=== PATIENT | female | born 1995 | race Caucasian/White ===

== ENCOUNTER 2017-01-15 11:22 | Emergency (ER) | payer OTHER ==
[2017-01-15 11:39] VITALS: TEMP 98.7; BMI 18.6
[2017-01-15] MEDS ORDERED: SODIUM CHLORIDE 1,000 ML IV STA (12:12)
[2017-01-15] MEDS ORDERED: MAG HYDROX/AL HYDROX/SIMETH 30 ML UNIT-DOSE CUP PO ONE (12:12)
[2017-01-15] MEDS ORDERED: PANTOPRAZOLE SODIUM 40 MG in SODIUM CHLORIDE 100 ML IVPB ONE (12:12)
[2017-01-15] MEDS ORDERED: SUCRALFATE 1 GM TABLET (FP) PO ONE (12:12)
[2017-01-15] MEDS ORDERED: FAMOTIDINE 20 MG/50 ML IVPB 50 ML IVPB ONE ×2 (12:12→12:23)
[2017-01-15 12:17] LABS: BASOPHIL 0.2 % (0-2.0); EOSINOPHIL 0.8 % (0-4.5); MCH 28.6 pg (25.7-33.7); MCHC 33.5 g/dl (32.0-36.0); MEAN CELL VOLUME 85.4 fl (80-96); MEAN PLT VOLUME 8.3 fl (7.5-11.1); NEUTROPHILS 80.4 % (42.8-82.8); PLATELET COUNT 229 K/MM3 (134-434); WHITE BLOOD COUNT 9.2 K/mm3 (4.0-10.0)
--- NOTE | 2017-01-15 12:17 | PDOC ---
History of Present Illness - General History Source: Patient Exam Limitations: No Limitations - History of Present Illness Initial Comments: 01/15/17 12:27 21 y F with a significant past medical history of gastritis and anxiety who presents to the ED with epigastric pain for 2 days. Patient reports severe pain in the epigastric area since last night. She reports multiple episodes of nausea and vomiting. She took tums and xanax with no relief. She had steak and rice yesterday. She has hx of intermittent gastritis flare ups. She has not been scoped in the past. No fever or chills. No diarrhea, constipation, hematochezia or hematuria. <Jamilah Hansen - Last Filed: 01/15/17 12:30> - General History Source: Patient Exam Limitations: No Limitations <Nghia Aguila - Last Filed: 01/15/17 16:25> - General Chief Complaint: Pain Stated Complaint: ABD PAIN Time Seen by Provider: 01/15/17 11:49 Past History <Jamilah Hansen - Last Filed: 01/15/17 12:30> - Past Medical History Psychiatric Problems: Yes (ANXIETY.) - Suicide/Smoking/Psychosocial Hx Smoking Status: No Smoking History: Never smoked Have you smoked in the past 12 months: No Number of Cigarettes Smoked Daily: 0 Information on smoking cessation initiated: No Hx Alcohol Use: No Drug/Substance Use Hx: No Substance Use Type: None <Nghia Aguila - Last Filed: 01/15/17 16:25> - Past Medical History Allergies/Adverse Reactions: Allergies Allergy/AdvReac Type Severity Reaction Status Date / Time acetaminophen Allergy Verified 01/15/17 11:35 [From Theraflu Sinus and Cold] pheniramine Allergy Verified 01/15/17 11:35 [From Theraflu Sinus and Cold] phenylephrine HCl Allergy Verified 01/15/17 11:35 [From Theraflu Sinus and Cold] Home Medications: Ambulatory Orders Pantoprazole Sodium [Protonix] 40 mg PO DAILY #30 tablet. 01/15/17 Ranitidine HCl [Zantac] 150 mg PO BID PRN #20 tablet 01/15/17 Review of Systems - Review of Systems Able to Perform ROS?: Yes Comments:: 01/15/17 12:28 GENERAL/CONSTITUTIONAL: No fever or chills. No weakness. HEAD, EYES, EARS, NOSE AND THROAT: No change in vision. No ear pain or discharge. No sore throat. CARDIOVASCULAR: No chest pain or shortness of breath. RESPIRATORY: No cough, wheezing, or hemoptysis. GASTROINTESTINAL: +nausea, vomiting, abdominal pain. No diarrhea or constipation. GENITOURINARY: No dysuria, frequency, or change in urination. MUSCULOSKELETAL: No joint or muscle swelling or pain. No neck or back pain. SKIN: No rash NEUROLOGIC: No headache, vertigo, loss of consciousness, or change in strength/ sensation. ENDOCRINE: No increased thirst. No abnormal weight change. HEMATOLOGIC/LYMPHATIC: No anemia, easy bleeding, or history of blood clots. ALLERGIC/IMMUNOLOGIC: No hives or skin allergy. <Jamilah Hansen - Last Filed: 01/15/17 12:30> *Physical Exam - Vital Signs Last Vital Signs Temp Pulse Resp BP Pulse Ox 98.7 F 123 H 18 93/52 100 01/15/17 11:36 01/15/17 11:36 01/15/17 11:36 01/15/17 11:36 01/15/17 11:36 - Physical Exam Comments: 01/15/17 12:28 GENERAL: Awake, alert, and fully oriented, in no acute distress HEAD: No signs of trauma EYES: PERRLA, EOMI, sclera anicteric, conjunctiva clear ENT: +Dry mucous membranes. Auricles normal inspection, hearing grossly normal, nares patent, oropharynx clear without exudates. NECK: Normal ROM, supple, no lymphadenopathy, JVD, or masses LUNGS: Breath sounds equal, clear to auscultation bilaterally. No wheezes, and no crackles HEART: +Tachycardia, normal S1 and S2, no murmurs, rubs or gallops ABDOMEN: +Epigastric tenderness. Soft, normoactive bowel sounds. No guarding, no rebound. No masses EXTREMITIES: Normal range of motion, no edema. No clubbing or cyanosis. No cords, erythema, or tenderness NEUROLOGICAL: Cranial nerves II through XII grossly intact. Normal speech, normal gait SKIN: Warm, Dry, normal turgor, no rashes or lesions noted. <Jamilah Hansen - Last Filed: 01/15/17 12:30> - Vital Signs Last Vital Signs Temp Pulse Resp BP Pulse Ox 98.7 F 123 H 18 93/52 100 01/15/17 11:36 01/15/17 11:36 01/15/17 11:36 01/15/17 11:36 01/15/17 11:36 <Nghia Aguila - Last Filed: 01/15/17 16:25> ED Treatment Course - LABORATORY CBC & Chemistry Diagram: 01/15/17 12:10 01/15/17 12:10 - ADDITIONAL ORDERS Additional order review: 01/15/17 12:10 RBC 5.00 MCV 85.4 MCHC 33.5 RDW 13.0 MPV 8.3 Neutrophils % 80.4 D Lymphocytes % 10.1 D Monocytes % 8.5 Eosinophils % 0.8 Basophils % 0.2 <Jamilah Hansen - Last Filed: 01/15/17 12:30> - LABORATORY CBC & Chemistry Diagram: 01/15/17 12:10 01/15/17 12:10 <Nghia Aguila - Last Filed: 01/15/17 16:25> Medical Decision Making - Medical Decision Making 01/15/17 12:24 A portion of this note was documented by scribe services under my direction. I have reviewed the details of the note, within reason, and agree with the documentation with the following case summary and management plan written by me. Patient treated in the ED. Nursing notes are reviewed and incorporated into the medical decision-making. Vital signs reviewed. Peripheral IV access obtained by the nurse, laboratory studies are drawn and sent, reviewed and interpreted by myself. Vital Signs Temp Pulse Resp BP Pulse Ox 98.7 F 123 H 18 93/52 100 01/15/17 11:36 01/15/17 11:36 01/15/17 11:36 01/15/17 11:36 01/15/17 11:36 I suspect the patient may likely have gastritis versus peptic ulcer disease. The patient did have a syncopal episode here in the ED that appears secondary to likely vasovagal. EKG demonstrates sinus tachycardia with no ST elevation or depression. No evidence of hypertrophic cardiomyopathy, Iwzru-[id number]-Djuoy, Brugada. We'll obtain blood work including serum pertinency test, urine analysis , right upper quadrant ultrasound, labs. Treat symptoms and reassess. 01/15/17 16:21 CBC, BMP 01/15/17 12:10 01/15/17 12:10 CMP Sodium 137 mmol/L (136-145) 01/15/17 12:10 Potassium 4.4 mmol/L (3.5-5.1) 01/15/17 12:10 Chloride 102 mmol/L (98-107) 01/15/17 12:10 Carbon Dioxide 25 mmol/L (21-32) 01/15/17 12:10 Anion Gap 10 (8-16) 01/15/17 12:10 BUN 13 mg/dL (7-18) 01/15/17 12:10 Creatinine 0.6 mg/dL (0.55-1.02) 01/15/17 12:10 Creat Clearance w eGFR > 60 (>60) 01/15/17 12:10 Random Glucose 89 mg/dL (74-106) 01/15/17 12:10 Calcium 9.4 mg/dL (8.5-10.1) 01/15/17 12:10 Total Bilirubin 1.5 mg/dL (0.2-1.0) H 01/15/17 12:10 AST 18 U/L (15-37) 01/15/17 12:10 ALT 17 U/L (12-78) 01/15/17 12:10 Alkaline Phosphatase 67 U/L (45-117) 01/15/17 12:10 Creatine Kinase 87 IU/L (26-192) 01/15/17 12:19 Troponin I < 0.02 ng/ml (0.00-0.05) 01/15/17 12:19 Total Protein 7.2 g/dl (6.4-8.2) 01/15/17 12:10 Albumin 3.6 g/dl (3.4-5.0) 01/15/17 12:10 Lipase 124 U/L (73-393) 01/15/17 12:10 Serum , Qual Negative 01/15/17 12:19 Urine Test Results Urine Color Ltyellow 01/15/17 12:11 Urine Appearance Clear 01/15/17 12:11 Urine pH 6.0 (5.0-8.0) 01/15/17 12:11 Urine Protein Negative (NEGATIVE) 01/15/17 12:11 Urine Glucose (UA) Negative (NEGATIVE) 01/15/17 12:11 Urine Ketones Trace (NEGATIVE) H 01/15/17 12:11 Urine Blood Negative (NEGATIVE) 01/15/17 12:11 Urine Nitrite Negative (NEGATIVE) 01/15/17 12:11 Urine Bilirubin Negative (NEGATIVE) 01/15/17 12:11 Labs reviewed. Ultrasound reviewed. No acute findings. Likely PUD vs. gastritis vs. stomach ulcer Will discharge on protonix and zantac Follow up with GI for endoscopy I discussed the physical exam findings, ancillary test results and final diagnoses with the patient. I answered all of the patient's questions. The patient was satisfied with the care received and felt comfortable with the discharge plan and treatment plan. The patient will call their primary care physician within 24 hours to arrange follow-up and will return to the Emergency Department with any new, persistant or worsening symptoms. <Nghia Aguila - Last Filed: 01/15/17 16:25> *DC/Admit/Observation/Transfer - Attestations Scribe Attestion: 01/15/17 12:30 Documentation prepared by RANJIT Salgado, acting as biomedical engineering professor for Nghia Aguila MD. <Jamilah Hansen - Last Filed: 01/15/17 12:30> - Discharge Dispostion Admit: No <Nghia Aguila - Last Filed: 01/15/17 16:25> Diagnosis at time of Disposition: Gastritis Qualifiers: Gastritis type: unspecified gastritis Chronicity: chronic Gastritis bleeding: without bleeding Qualified Code(s): K29.50 - Unspecified chronic gastritis without bleeding; K29.50 - Unspecified chronic gastritis without bleeding - Discharge Dispostion Disposition: HOME Condition at time of disposition: Improved - Prescriptions Prescriptions: Pantoprazole Sodium [Protonix] 40 mg PO DAILY #30 tablet. Ranitidine HCl [Zantac] 150 mg PO BID PRN #20 tablet PRN Reason: GERD - Referrals Referrals: Elton Campos [Primary Care Provider] - Ralph Sanchez MD [Staff Physician] - - Patient Instructions Printed Discharge Instructions: DI for Gastric Ulcer, DI for Gastritis Additional Instructions: Take 40 mg protonix daily. For additional relief, take a tablet of zantac every 12 hours as needed. Follow up with a GI physician. You may need an endoscopy.
[2017-01-15] MEDS ORDERED: PANTOPRAZOLE SODIUM 100 ML IVPB ONE (12:22)
[2017-01-15] MEDS ORDERED: SUCRALFATE 1 GM TABLET (FP) ONE (12:22)
[2017-01-15] MEDS ORDERED: MAG HYDROX/AL HYDROX/SIMETH 30 ML UNIT-DOSE CUP ONE (12:22)
[2017-01-15 12:44] LABS: ALBUMIN 3.6 g/dl (3.4-5.0); ANION GAP 10 (8-16); BILIRUBIN,TOTAL 1.5 mg/dL (0.2-1.0); CALCIUM 9.4 mg/dL (8.5-10.1); CO2 25 mmol/L (21-32); CREATININE 0.6 mg/dL (0.55-1.02); GLUCOSE,RANDOM 89 mg/dL (74-106); SGPT/ALT 17 U/L (12-78); TOT PROT 7.2 g/dl (6.4-8.2)
[2017-01-15 12:45] LABS: ALK PHOS 67 U/L (45-117)
[2017-01-15 12:54] LABS: TROPONIN I < 0.02 ng/ml (0.00-0.05)
[2017-01-15 13:02] LABS: SGOT/AST 18 U/L (15-37)
[2017-01-15 13:03] LABS: CPK 87 IU/L (26-192)
[2017-01-15 15:11] LABS: URINE APPEARANCE CLEAR; URINE BILIRUBIN NEGATIVE (NEGATIVE); URINE BLOOD NEGATIVE (NEGATIVE); URINE COLOR LTYELLOW; URINE GLUCOSE (UA) NEGATIVE (NEGATIVE); URINE KETONE TRACE (NEGATIVE); URINE NITRITE NEGATIVE (NEGATIVE); URINE PROTEIN NEGATIVE (NEGATIVE); URINE UROBILINOGEN NEGATIVE mg/dL (0.2-1.0)
[2017-01-15 16:56] VITALS: BP 101/82; PULSE 99
[2017-01-15 18:48] LABS: URINE LEUK ESTERASE NEGATIVE (NEGATIVE)
--- NOTE | 2017-01-16 11:06 | EKG ---
Test Reason : Blood Pressure : / mmHG Vent. Rate : 112 BPM Atrial Rate : 112 BPM P-R Int : 116 ms QRS Dur : 074 ms QT Int : 312 ms P-R-T Axes : 055 090 057 degrees QTc Int : 425 ms SINUS TACHYCARDIA RIGHTWARD AXIS NO PREVIOUS ECGS AVAILABLE Confirmed by KWADWO MUIR MD ([id number]) on 01/16/2017 11:05:33 AM Referred By: Confirmed By:KWADWO MUIR MD
== END 2017-01-15 16:58 | disposition home or self-care (01) ==
LOC: JER 11:22
PROC: 3E033GC Introduction of Other Therapeutic Substance into Peripheral Vein, Percutaneous Approach (ICD-10-PCS; principal; 2017-01-15)
PROC: 3E033GC Introduction of Other Therapeutic Substance into Peripheral Vein, Percutaneous Approach (ICD-10-PCS; 2017-01-15)
DX: K29.50 Unspecified chronic gastritis without bleeding (principal)
CPT/HCPCS: 36415; 76705-TC; 80053; 81003; 82550; 83690; 84484; 84703; 85025; 87086; 93005; 93010; 96365; 96368; 99283-25

== ENCOUNTER 2017-12-07 03:47 | Emergency (ER) | payer OTHER ==
[2017-12-07] MEDS ORDERED: SODIUM CHLORIDE 1,000 ML IV STA (05:46)
[2017-12-07] MEDS ORDERED: FAMOTIDINE 20 MG/50 ML IVPB 20 MG/50 ML MG IVPB ONE ×2 (05:46→05:53)
[2017-12-07] MEDS ORDERED: MAG HYDROX/AL HYDROX/SIMETH 30 ML UNIT-DOSE CUP PO ONE (05:47)
[2017-12-07 05:50] VITALS: TEMP 97.5; BMI 18.4
[2017-12-07] MEDS ORDERED: MAG HYDROX/AL HYDROX/SIMETH 30 ML UNIT-DOSE CUP ONE (05:53)
--- NOTE | 2017-12-07 06:19 | PDOC ---
History of Present Illness - General History Source: Patient Exam Limitations: No Limitations - History of Present Illness Initial Comments: 12/07/17 06:19 Osmar 22 YOF with a significant PMHx of gastritis and anxiety who presents to the ED with epigastric pain for 3 days. Patient reports severe pain in the epigastric area after eating chipotle one hour prior to her arrival to the ER. She also reports one episode of non bilious, non bloody vomit prior to arrival. Patient states she has a history of intermittent gastritis flare ups. Patient has not had an endoscopy in the past. The patient denies chest pain, shortness of breath, headache, and dizziness. Denies fever, chills, nausea, diarrhea, and constipation. Denies dysuria, frequency, urgency, and hematuria. Allergies: pheniramine, phenylephrine HCl Past surgical history: None reported. Social history: No reported alcohol, drug, or cigarette use. PCP: Dr. Hayden <Kiley Hughes - Last Filed: 12/07/17 06:19> - General History Source: Patient Exam Limitations: No Limitations <Jeanie Mari - Last Filed: 12/07/17 06:53> - General Chief Complaint: Pain Stated Complaint: ABD PAIN Time Seen by Provider: 12/07/17 05:46 Past History <Kiley Hughes - Last Filed: 12/07/17 06:19> - Past Medical History COPD: No Psychiatric Problems: Yes (ANXIETY.) - Suicide/Smoking/Psychosocial Hx Smoking Status: No Smoking History: Never smoked Have you smoked in the past 12 months: No Number of Cigarettes Smoked Daily: 0 Hx Alcohol Use: No Drug/Substance Use Hx: No Substance Use Type: None <Jeanie Mari - Last Filed: 12/07/17 06:53> - Past Medical History Allergies/Adverse Reactions: Allergies Allergy/AdvReac Type Severity Reaction Status Date / Time pheniramine Allergy Verified 12/07/17 05:42 [From Theraflu Sinus and Cold] phenylephrine HCl Allergy Verified 12/07/17 05:42 [From Theraflu Sinus and Cold] Home Medications: Ambulatory Orders NK [No Known Home Medication] 12/07/17 Review of Systems - Review of Systems Comments:: 12/07/17 06:20 ROS General Medical GENERAL/CONSTITUTIONAL: No fever or chills. No weakness. no sweats. HEAD, EYES, EARS, NOSE AND THROAT: No change in vision or hearing. No ear pain or discharge. No sore throat or mouth pain. No difficulty swallowing.. No congestion. CARDIOVASCULAR: No chest pain or palpitations, syncope or edema. RESPIRATORY: No SOB, cough, wheezing, or hemoptysis. GASTROINTESTINAL (+) Epigastric pain. (+) Vomited. (+) Gas pain. No nausea. No diarrhea or constipation. No bloody stools. GENITOURINARY: No hematuria, dysuria, frequency, urgency or other changes. MUSCULOSKELETAL: No joint or muscle swelling or pain. No neck or back pain. SKIN: No rash or changes in skin color or lesions. NEUROLOGIC: No headache, vertigo, loss of consciousness, or change in strength/ sensation. No gait instability. HEMATOLOGIC/LYMPHATIC: No anemia, easy bruising/bleeding, or history of blood clots. ALLERGIC/IMMUNOLOGIC: No allergies All other systems reviewed and negative, or as documented in HPI. <Kiley Hughes - Last Filed: 12/07/17 06:19> *Physical Exam - Vital Signs Last Vital Signs Temp Pulse Resp BP Pulse Ox 97.5 F L 75 18 110/73 12/07/17 05:47 12/07/17 05:47 12/07/17 05:47 12/07/17 05:47 - Physical Exam Comments: 12/07/17 06:20 General: Well appearing, awake and alert, NAD. HEENT: NCAT, PERRL, EOMI, clear conjunctiva, anicteric, moist mucus membranes, clear oropharynx, no oral lesions.. Neck: neck supple, FROM Resp: CTAB, normal and even respirations, no respiratory distress CVS: RRR, 2+ peripheral pulses throughout, no peripheral edema Abdomen: soft, nondistended, +epigastric TTP, no [place], no peritoneal signs. No flank tenderness MSK: no edema, ESTRELLA x4, ROM intact. No clubbing or cyanosis. normal bulk and tone. Neuro: alert, oriented appropriately Skin: warm and well perfused, cap refill <2 sec, normal color General Appearance: Yes: Nourished <iKley Hughes - Last Filed: 12/07/17 06:19> - Vital Signs Last Vital Signs Temp Pulse Resp BP Pulse Ox 97.5 F L 75 18 110/73 12/07/17 05:47 12/07/17 05:47 12/07/17 05:47 12/07/17 05:47 <Jeanie Mari - Last Filed: 12/07/17 06:53> ED Treatment Course - LABORATORY CBC & Chemistry Diagram: 12/07/17 06:07 12/07/17 06:07 - Medications Given in the ED: ED Medications Discontinued Medications Generic Name Dose Route Start Last Admin Trade Name Freq PRN Reason Stop Dose Admin Al Hydroxide/Mg Hydroxide 30 ml 12/07/17 05:47 12/07/17 06:07 Mylanta Oral Suspension - PO 12/07/17 05:48 30 ml ONCE ONE Administration Famotidine/Sodium Chloride 20 mg in 50 mls @ 100 mls/hr 12/07/17 05:46 06:07 Pepcid 20 Mg Premixed Ivpb - IVPB 12/07/17 06:15 100 mls/hr ONCE ONE Administration <Kiley Hughes - Last Filed: 12/07/17 06:19> - LABORATORY CBC & Chemistry Diagram: 12/07/17 06:07 12/07/17 06:07 - Medications Given in the ED: ED Medications Discontinued Medications Generic Name Dose Route Start Last Admin Trade Name Freq PRN Reason Stop Dose Admin Al Hydroxide/Mg Hydroxide 30 ml 12/07/17 05:47 12/07/17 06:07 Mylanta Oral Suspension - PO 12/07/17 05:48 30 ml ONCE ONE Administration Famotidine/Sodium Chloride 20 mg in 50 mls @ 100 mls/hr 12/07/17 05:46 06:07 Pepcid 20 Mg Premixed Ivpb - IVPB 12/07/17 06:15 100 mls/hr ONCE ONE Administration <Jeanie Mari - Last Filed: 12/07/17 06:53> Medical Decision Making - Medical Decision Making 12/07/17 06:19 A portion of this note was documented by scribe services under my direction. I have reviewed the details of the note, within reason, and agree with the documentation with the following case summary and management plan written by me. MDM: Osmar 22 y F with a significant past medical history of gastritis and anxiety presenting with epigastric pain x 3 days, +1 episode of NBNB vomiting; no diarrhea, fevers or chills. LMP 2 weeks ago. no urinary sx. +food precipitant (chipotle, fatty and greasy foods) Seen previously in the ED for similar sx, last abdomen US in 2017 which was normal. did not get endoscopy. DDx abdominal pain: GERD, PUD, esophageal spasm, pancreatitis, hepatitis, constipation, colitis, biliary colic, doubt appy or diverticulitis or pelvic pathology/UTI. sx most likely GERD vs gastritis - told to avoid triggers such as chipotle. Vitals wnl. Basic labs, lytes, LFTs and lipase wnl. Neg preg given LMP 2 weeks ago Given GI cocktail, IVF, antiemetics, sx likely from GERD/food intake (high fat and carbs) as trigger for her recurrent epigastric pain. Discharge: Pt to be discharged in stable condition. Patient and family made aware of impression and plan, return precautions discussed (including but not limited to worsening pain or symptoms), fevers, or signs of infection, chest pain, respiratory distress, inability to tolerate oral intake, dehydration, syncope, or neurologic changes). Follow up with PMD aand GI specialist Dr Quintero , as recommended, follow up information provided, take medications as instructed for duration of time. continue with supportive care, avoid triggers and precipitants. All questions answered to patient's satisfaction and expressed understanding and comfort with this. 12/07/17 06:22 12/07/17 06:53 <Jeanie Mari - Last Filed: 12/07/17 06:53> *DC/Admit/Observation/Transfer - Attestations Scribe Attestion: 12/07/17 06:22 Documentation prepared by Kiley Hughes, acting as medical manager for Jeanie Mari MD. <Kiley Hughes - Last Filed: 12/07/17 06:19> - Discharge Dispostion Decision to Admit order: No <Jeanie Mari - Last Filed: 12/07/17 06:53> Diagnosis at time of Disposition: Abdominal pain, epigastric - Discharge Dispostion Disposition: HOME Condition at time of disposition: Improved - Referrals Referrals: Brian Hayden MD [Primary Care Provider] - Ned Quintero MD [Staff Physician] - - Patient Instructions Printed Discharge Instructions: DI for Abdominal Pain-Adult, Gastroesophageal Reflux Disease (Alternative Therapy), GERD Diet, DI for Gastroesophageal Reflux Disease (GERD) Additional Instructions: you most likely have reflux and gastritis symptoms from intake of fatty foods avoid spicy or fatty/greasy foods, avoid triggers take pepcid daily and maalox or mylanta every 6 hours with food for heart burn and prevention of symptoms. 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 referrals provided. your blood work was normal. Print Language: SWISS - Post Discharge Activity
[2017-12-07 06:23] LABS: BASO % 0.9 % (0-2.0); EOS % 2.9 % (0-4.5); HEMATOCRIT 34.9 % (32.4-45.2); HEMOGLOBIN 11.8 GM/dL (10.7-15.3); LYMPH % 39.4 % (8-40); MCH 28.6 pg (25.7-33.7); MCHC 33.8 g/dl (32.0-36.0); MEAN CELL VOLUME 84.6 fl (80-96); MEAN PLT VOLUME 8.2 fl (7.5-11.1); MONO % 9.8 % (3.8-10.2); PLATELET COUNT 266 K/MM3 (134-434); RBC 4.13 M/mm3 (3.60-5.2); RDW 13.5 % (11.6-15.6)
[2017-12-07 06:47] LABS: ALBUMIN 3.1 g/dl (3.4-5.0); ALK PHOS 52 U/L (45-117); ANION GAP 7 MMOL/L (8-16); BILIRUBIN,TOTAL 0.8 mg/dL (0.2-1.0); BLOOD UREA NITROGEN 17 mg/dL (7-18); CALCIUM 8.5 mg/dL (8.5-10.1); CHLORIDE 105 mmol/L (98-107); CO2 28 mmol/L (21-32); CREATININE 0.7 mg/dL (0.55-1.02); GLUCOSE,RANDOM 87 mg/dL (74-106); LIPASE 126 U/L (73-393); POTASSIUM 4.1 mmol/L (3.5-5.1); SGOT/AST 14 U/L (15-37); SGPT/ALT 15 U/L (12-78); SODIUM 140 mmol/L (136-145); TOT PROT 6.4 g/dl (6.4-8.2)
[2017-12-07 07:08] VITALS: BP 103/65; PULSE 82
== END 2017-12-07 07:08 | disposition home or self-care (01) ==
LOC: JER 03:47
PROC: 3E033GC Introduction of Other Therapeutic Substance into Peripheral Vein, Percutaneous Approach (ICD-10-PCS; principal; 2017-12-07)
DX: K29.70 Gastritis, unspecified, without bleeding (principal); R10.13 Epigastric pain
CPT/HCPCS: 36415; 80053; 83690; 85025; 99282-25; J7030

== ENCOUNTER 2018-06-11 10:50 | Emergency (ER) | payer OTHER ==
[2018-06-11 11:08] VITALS: BP 100/53; PULSE 90; TEMP 98.8; BMI 18.9
[2018-06-11 11:59] LABS: URINE APPEARANCE CLEAR; URINE BILIRUBIN NEGATIVE (<2.0 mg/dL); URINE COLOR YELLOW; URINE GLUCOSE (UA) NEGATIVE (NEGATIVE); URINE KETONE TRACE (NEGATIVE); URINE LEUK ESTERASE 1+ (NEGATIVE); URINE NITRITE NEGATIVE (NEGATIVE); URINE PROTEIN NEGATIVE (NEGATIVE); URINE UROBILINOGEN NEGATIVE mg/dL (0.2-1.0)
[2018-06-11] MEDS ORDERED: FLUCONAZOLE 50 MG TABLET PO ONE (12:21)
--- NOTE | 2018-06-11 12:28 | PDOC ---
History of Present Illness - General Chief Complaint: Vaginal Sxs Stated Complaint: VAG PROBLEM Time Seen by Provider: 06/11/18 11:13 History Source: Patient (vaginal discomfort X 2 days, s/p flagyl course completion 3 days ago) Exam Limitations: No Limitations Past History - Travel Traveled outside of the country in the last 30 days: No Close contact w/someone who was outside of country & ill: No - Past Medical History Allergies/Adverse Reactions: Allergies Allergy/AdvReac Type Severity Reaction Status Date / Time pheniramine Allergy Verified 06/11/18 11:08 [From Theraflu Sinus and Cold] phenylephrine HCl Allergy Verified 06/11/18 11:08 [From Theraflu Sinus and Cold] Home Medications: Ambulatory Orders Fluconazole 150 mg PO ACDIN #1 tablet 06/11/18 Nystatin/Triamcinolone Top Oin [Mycolog II -] 1 applic TP BID 5 Days #30 gm 01/20 COPD: No Psychiatric Problems: Yes (ANXIETY.) - Suicide/Smoking/Psychosocial Hx Smoking Status: No Smoking History: Never smoked Have you smoked in the past 12 months: No Number of Cigarettes Smoked Daily: 0 Hx Alcohol Use: No Drug/Substance Use Hx: No Substance Use Type: None Abd/GI Specific PMHX - Complaint Specific PMHX Colitis: No Review of Systems - Review of Systems Able to Perform ROS?: No Is the patient limited Occitan proficient: Yes Constitutional: No: Chills, Fever ABD/GI: No: Abdominal Distended, Abd. Pain w/ defecation, Blood Streaked Bowels , Diarrhea, Difficulty Swallowing, Nausea, Vomiting : Yes: Discharge. No: Burning, Dysuria, Frequency, Flank Pain, Hematuria, Incontinence, Urgency *Physical Exam - Vital Signs Last Vital Signs Temp Pulse Resp BP Pulse Ox 98.8 F 90 18 100/53 L 99 06/11/18 11:05 06/11/18 11:05 06/11/18 11:05 06/11/18 11:05 06/11/18 11:05 - Physical Exam General Appearance: Yes: Nourished Respiratory/Chest: positive: Lungs Clear, Normal Breath Sounds Cardiovascular: positive: Regular Rhythm, Regular Rate, S1, S2 Female Pelvic Exam: positive: discharge, other (inflamed labia majoria with white thick discharge in vaginal vault, no CMT/Adenexa tenderness) Gastrointestinal/Abdominal: positive: Normal Bowel Sounds, Soft Neurologic: positive: video conference specialist II-XII NML intact, Fully Oriented Moderate Sedation - Procedure Monitoring Vital Signs: Procedure Monitoring Vital Signs Temperature 98.8 F 06/11/18 11:05 Pulse Rate 90 06/11/18 11:05 Respiratory Rate 18 06/11/18 11:05 Blood Pressure 100/53 L 06/11/18 11:05 O2 Sat by Pulse Oximetry (%) 99 06/11/18 11:05 ED Treatment Course - ADDITIONAL ORDERS Additional order review: Laboratory Results 06/11/18 11:00 Urine HCG, Qual Negative Medical Decision Making - Medical Decision Making 06/11/18 12:24 23 years old female presents with vaginal discomfort and discharge for 2 days. Patient reports she completed a course of Flagyl for BV that was given to her by her [employer]CH[employer]ECT[employer]DEL[employer] course was completed 3 days ago. She denies any pelvic pain any urinary discomfort urgency frequency or any STI concerns. Examination consist of candidiasis. benign abd exam. Diflucan given here in the ER and additional I'll be sent to the patient's pharmacy patient to follow-up with [facility]ECT[employer] *DC/Admit/Observation/Transfer Diagnosis at time of Disposition: Becky infection of genital region - Discharge Dispostion Disposition: HOME Condition at time of disposition: Stable Decision to Admit order: No - Prescriptions Prescriptions: Fluconazole 150 mg PO ACDIN #1 tablet Nystatin/Triamcinolone Top Oin [Mycolog II -] 1 applic TP BID 5 Days #30 gm - Referrals Referrals: Brian Hayden MD [Primary Care Provider] - - Patient Instructions Printed Discharge Instructions: DI for Vaginal Yeast Infection Additional Instructions: you were treated for a vaginal yeast infection today. please take the medication pharmacy in 3 days. Follow-up with her [facility]CH[employer]ECT[employer]DEL[employer] doctor. He may return to the emergency room occur. - Post Discharge Activity
[2018-06-11 12:29] LABS: EPI CELLS RARE /HPF (FEW); URINE MUCUS MANY
[2018-06-11] MEDS ORDERED: FLUCONAZOLE 100 MG TABLET (UD) ONE (12:36)
== END 2018-06-11 12:38 | disposition home or self-care (01) ==
LOC: JERFT 10:50
DX: B37.3 Candidiasis of vulva and vagina (principal)
CPT/HCPCS: 36415; 81003; 81015; 84703; 87491; 87591; 99281-25